=== PATIENT | female | born 1985 | race Asian ===

== ENCOUNTER 2024-02-03 09:20 | Emergency (ER) | payer SELFPAY ==
[2024-02-03 09:26] VITALS: BP 98/80
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
== END 2024-02-03 11:00 | disposition home or self-care (01) ==
LOC: EMR 09:20
PROVIDERS: EMERGENCY PHYSICIAN Emergency Medicine; FAMILY PHYSICIAN Family Medicine
DX: M25.571 Pain in right ankle and joints of right foot (principal); S82.51XA Displaced fracture of medial malleolus of right tibia, initial encounter for closed fracture; S70.12XA Contusion of left thigh, initial encounter; V49.40XA Driver injured in collision with unspecified motor vehicles in traffic accident, initial encounter; Y92.410 Unspecified street and highway as the place of occurrence of the external cause
CPT/HCPCS: 99283; 73610